=== PATIENT | female | born 1965 | race Caucasian/White ===

== ENCOUNTER → 2016-10-31 16:50 | Outpatient (CLI) | payer MEDICAID | END | disposition home or self-care (01) | LOC: D.MAMMO 11:45 | DX: N63 Unspecified lump in breast (principal) ==

== ENCOUNTER → 2017-09-18 09:24 | Outpatient (CLI) | payer MEDICAID | END | disposition home or self-care (01) | LOC: D.US 09:24 | DX: R10.9 Unspecified abdominal pain (principal) ==

== ENCOUNTER → 2017-09-25 12:53 | Outpatient (CLI) | payer MEDICAID | END | disposition home or self-care (01) | LOC: D.NM 12:53 | DX: R10.11 Right upper quadrant pain (principal); K76.0 Fatty (change of) liver, not elsewhere classified ==

== ENCOUNTER → 2017-10-11 08:16 | Outpatient (CLI) | payer MEDICAID | END | disposition home or self-care (01) | LOC: D.CT 10-09 08:30 | DX: R10.10 Upper abdominal pain, unspecified (principal) ==

== ENCOUNTER → 2018-10-25 08:00 | Outpatient (CLI) | payer MEDICAID | END | disposition home or self-care (01) | LOC: D.MAMMO 08:00 | DX: Z12.31 Encounter for screening mammogram for malignant neoplasm of breast (principal) ==

== ENCOUNTER 2020-01-23 11:40 | Outpatient (CLI) | payer MEDICAID ==
[~2020-01-23] VITALS: Ht 167.6 cm; Wt 70.5 kg
[2020-01-23 12:52] VITALS: BP 131/78; Ht 167.6 cm; Wt 70.5 kg
== END 2020-01-23 13:05 | disposition home or self-care (01) ==
LOC: D.OPS 11:40
PROVIDERS: ATTEND Family Medicine
DX: G43.919 Migraine, unspecified, intractable, without status migrainosus (principal)

== ENCOUNTER → 2020-03-08 09:33 | Outpatient (CLI) | payer MEDICAID ==
[2020-01-23 12:52] VITALS: BMI 25.0
== END | disposition home or self-care (01) ==
LOC: D.CN 09:33
PROVIDERS: ATTEND Psychiatry & Neurology Neurology
DX: R55 Syncope and collapse (principal)

== ENCOUNTER → 2020-03-25 14:45 | Outpatient (CLI) | payer MEDICAID ==
[~2020-03-25] VITALS: Ht 167.6 cm; Wt 70.5 kg
[~2020-03-25 14:45] MED LIST: CYMBALTA60 MG PO; ZOCOR10 MG PO
[2020-03-25 15:15] VITALS: Ht 167.6 cm; Wt 70.5 kg
== END | disposition home or self-care (01) ==
LOC: D.OPS 14:45
PROVIDERS: ATTEND Family Medicine
DX: G43.919 Migraine, unspecified, intractable, without status migrainosus (principal)

== ENCOUNTER 2020-05-06 15:39 | Outpatient (CLI) | payer MEDICAID ==
[~2020-05-06] VITALS: Ht 167.6 cm; Wt 70.5 kg
[2020-05-06 16:54] VITALS: BP 115/79; Ht 167.6 cm; Wt 70.5 kg
--- NOTE | 2020-05-06 17:15 | NUR ---
1715 [id number] PULSE 75 20 RESP AND 97 PULSE. PAIN 5/10
== END 2020-05-06 17:30 | disposition home or self-care (01) ==
LOC: D.OPS 15:39
PROVIDERS: ATTEND Family Medicine
DX: G43.009 Migraine without aura, not intractable, without status migrainosus (principal)

== ENCOUNTER 2020-06-11 12:22 | Outpatient (CLI) | payer MEDICAID ==
[~2020-06-11] VITALS: Ht 167.6 cm; Wt 70.5 kg
[2020-06-11] MEDS ORDERED: TEMAZEPAM30 MG PO (12:36)
[2020-06-11 13:03] VITALS: Ht 167.6 cm; Wt 70.5 kg
== END 2020-06-11 13:16 | disposition home or self-care (01) ==
LOC: D.OPS 12:22
PROVIDERS: ATTEND Family Medicine
DX: G43.009 Migraine without aura, not intractable, without status migrainosus (principal)